=== PATIENT | female | born 1980 | race Caucasian/White ===

== ENCOUNTER 2018-03-27 00:15 | Emergency (ER) | payer MEDICAID ==
[~2018-03-27] VITALS: Ht 172.7 cm; Wt 73.0 kg
[2018-03-27 00:19] VITALS: BP 120/83
[2018-03-27 01:08] LABS: AMPHETAMINE SCREEN, URINE Positive (Negative); BARBITURATE SCREEN, URINE Negative (Negative); BENZODIAZEPINE SCREEN, URINE Negative (Negative); CANNABINOID SCREEN, URINE Positive (Negative); COCAINE SCREEN, URINE Negative (Negative); METHADONE SCREEN, URINE Negative (Negative); OPIATE SCREEN, URINE Negative (Negative)
[2018-03-27 01:10] LABS: BASOPHILS # (AUTO) 0.09 x10^3/uL (0-0.1); BASOPHILS % (AUTO) 1 % (0-1); EOSINOPHILS # (AUTO) 0.19 x10^3/uL (0-0.4); EOSINOPHILS % (AUTO) 3 % (1-7); LYMPHOCYTES # (AUTO) 2.11 x10^3/uL (1-3.4); LYMPHOCYTES % (AUTO) 32 % (22-44); MD NO; MEAN CORPUSCULAR HEMOGLOBIN 32.4 pg (27.0-34.8); MEAN CORPUSCULAR HGB CONC 34.4 g/dL (32.4-35.8); MONOCYTES # (AUTO) 0.48 x10^3/uL (0.2-0.8); MONOCYTES % (AUTO) 7 % (2-9); NEUTROPHILS # (AUTO) 3.81 x10^3/uL (1.8-6.8); NEUTROPHILS % (AUTO) 57 % (42-75); PLATELET COUNT 221 x10^3/uL (130-400); RED BLOOD COUNT 4.09 x10^6/uL (3.82-5.3); RED CELL DISTRIBUTION WIDTH 13.3 % (9.6-15.2)
[2018-03-27 01:19] LABS: ALANINE AMINOTRANSFERASE 18 U/L (12-78); ALBUMIN 3.6 g/dL (3.4-5.0); ANION GAP 7 mmol/L (5-15); CALCIUM 8.3 mg/dL (8.5-10.1); CHLORIDE 110 mmol/L (98-107); SALICYLATE LEVEL 3.2 mg/dL (2.8-20.0)
[2018-03-27 01:22] LABS: ALKALINE PHOSPHATASE 50 U/L (45-117); BILIRUBIN,TOTAL 0.2 mg/dL (0.2-1.0); CREATININE 0.87 mg/dL (0.55-1.02); TOTAL PROTEIN 6.6 g/dL (6.4-8.2)
[2018-03-27 01:25] LABS: ACETAMINOPHEN < 2 mcg/mL (10-30)
== END 2018-03-27 01:30 | disposition home or self-care (01) ==
LOC: ED 00:49
DX: F15.10 Other stimulant abuse, uncomplicated (principal); F10.10 Alcohol abuse, uncomplicated; Z00.00 Encounter for general adult medical examination without abnormal findings; F17.200 Nicotine dependence, unspecified, uncomplicated; Z79.899 Other long term (current) drug therapy
CPT/HCPCS: 36415; 80053; 80307; 80329; 85025; 99284; G0480

== ENCOUNTER 2021-03-14 01:33 | Emergency (ER) | payer MEDICAID ==
[~2021-03-14] VITALS: Ht 172.7 cm; Wt 66.9 kg
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
[2021-03-14] MEDS ORDERED: KETOROLAC 30 MG/1 ML ONE (01:56)
[2021-03-14] MEDS ORDERED: KETOROLAC 15 MG/1ML IM ONE (02:00)
--- NOTE | 2021-03-14 02:00 | NUR ---
pt medicated per nov 08 rights verified
--- NOTE | 2021-03-14 03:23 | NUR ---
Patient is resting comfortably in bed. Bed in lowest, rails engaged, call light on lap. Vital Signs within normal limits. WCTM.
[2021-03-14 03:52] VITALS: BP 122/69
--- NOTE | 2021-03-14 03:53 | NUR ---
Patient given discharge instructions and they have confirmed that they understand the instructions. Patient ambulatory with steady gait. NAD, all questions answered appropriately, denies additional needs at this time. No personal belongings left in room after discharge.
== END 2021-03-14 04:05 | disposition home or self-care (01) ==
LOC: ED 03:27
DX: S20.212A Contusion of left front wall of thorax, initial encounter (principal); M25.512 Pain in left shoulder; X58.XXXA Exposure to other specified factors, initial encounter; Y93.89 Activity, other specified; Y92.89 Other specified places as the place of occurrence of the external cause; Y99.8 Other external cause status
CPT/HCPCS: 71101; 96372; 99283; J1885